=== PATIENT | female | born 1970 | race Asian ===

== ENCOUNTER → 2017-03-23 | Day surgery (SDC) | payer OTHER ==
[~2017-03-23] MED LIST: HYDR200T PO; IV RINGERS,LACTATED 1000ML 1,000 ML IV SCH; LIDOCAINE 1% PF 2 ML VIAL. ID PRN; MIDAZOLAM HCL/PF 2 MG/2 ML VIAL. IV PRN; PROPOFOL 40 ML IV ONE; fentaNYL PF VIAL 100 MCG/2 ML VIAL IV PRN
[2017-03-23 08:43] LABS: NEG OBC UR NEG; POS OBC UR POS
[2017-03-23 10:10] VITALS: BP 102/55
--- NOTE | 2017-03-24 14:13 | PATHOLOGY ---
PATHOLOGY REPORT * * * * * * * * FINAL DIAGNOSIS: Sigmoid colon polypectomy: - Tubular adenoma. COMMENT: There is no high grade dysplasia or evidence of malignancy. (JPM:mml; 03/24/2017) REPORT ELECTRONICALLY SIGNED BY: Adalid Butler M.D. DATE/TIME: 03/24/2017 14:12 * * * * * * * * GROSS PATHOLOGY: The specimen is received in formalin, labeled "Scott Edgar and sigmoid polyp", is a quinonez-brown rubbery polyp 0.6 x 0.5 x 0.3 cm, inked black, bisected and entirely submitted in A1 (SWS; 03/23/2017) INITIAL CPT CODE(S): A; 14346 Professional services performed [place] [facility] [address] Technical services performed by [facility] at [address] [place] [address]. SPECIMEN(S) RECEIVED: A.Sigmoid polyp CLINICAL HISTORY: Change in bowel habits, rectal bleeding; polyp PATIENT: SCOTT EDGAR /AGE: 612/09/1970 (Age: 46) PATIENT #: [id number] ALT CASE #: SPECIMEN COLLECTION DATE: 03/23/2017 SPECIMEN RECEIVED DATE: 03/23/2017 [facility] - [address] [place] [address] - PHONE: [phone] * * * END OF REPORT * * *
== END | disposition home or self-care (01) ==
LOC: SURG 08:01
PROVIDERS: ATTEND Internal Medicine Gastroenterology
DX: D12.5 Benign neoplasm of sigmoid colon (principal); K64.0 First degree hemorrhoids; Z86.69 Personal history of other diseases of the nervous system and sense organs; Z86.39 Personal history of other endocrine, nutritional and metabolic disease; Z98.890 Other specified postprocedural states
CPT/HCPCS: 45385; 81025; 88305; J2704